=== PATIENT | female | born 1985 | race African-American/Black ===

== ENCOUNTER → 2017-03-13 | Outpatient (CLI) | payer OTHER | END | disposition home or self-care (01) | LOC: LABWHC1 08:42 | PROVIDERS: ATTEND Internal Medicine Endocrinology, Diabetes & Metabolism | DX: E03.8 Other specified hypothyroidism (principal) | CPT/HCPCS: 36415; 84443 ==

== ENCOUNTER → 2017-04-13 | Outpatient (CLI) | payer OTHER | END | disposition home or self-care (01) | LOC: LABWHC1 15:13 | PROVIDERS: ATTEND Obstetrics & Gynecology Reproductive Endocrinology | DX: O02.0 Blighted ovum and nonhydatidiform mole (principal) | CPT/HCPCS: 36415; 84702 ==

== ENCOUNTER → 2017-05-11 | Outpatient (CLI) | payer OTHER | LOC: LABWHC1 10:44 | PROVIDERS: ATTEND Obstetrics & Gynecology Reproductive Endocrinology | DX: O02.0 Blighted ovum and nonhydatidiform mole (principal); Z3A.00 Weeks of gestation of pregnancy not specified | CPT/HCPCS: 36415; 84702 ==

== ENCOUNTER → 2017-05-18 | Outpatient (CLI) | payer OTHER | END | disposition home or self-care (01) | LOC: LABWHC1 06:51 | PROVIDERS: ATTEND Obstetrics & Gynecology Reproductive Endocrinology | DX: O02.0 Blighted ovum and nonhydatidiform mole (principal) | CPT/HCPCS: 36415; 84702 ==

== ENCOUNTER → 2017-11-07 | Outpatient (CLI) | payer OTHER | END | disposition home or self-care (01) | LOC: LABWHC1 14:36 | PROVIDERS: ATTEND Internal Medicine Endocrinology, Diabetes & Metabolism | DX: E03.8 Other specified hypothyroidism (principal) | CPT/HCPCS: 36415; 84443 ==

== ENCOUNTER → 2017-11-13 | Outpatient (CLI) | payer OTHER ==
[2017-11-13 16:48] LABS: ALT 27 U/L (9-52); AST 21 U/L (14-36); Blood Urea Nitrogen 9 mg/dL (7-17); Glucose 89 mg/dL (74-99)
[2017-11-13 17:07] LABS: HCG,Quantitative Serum <2.4 mIU/mL; T4, Free (Free Thyroxine) 1.46 ng/dL (0.78-2.19)
[2017-11-14 01:24] LABS: Vitamin D 25 Hydroxy 11.8 ng/mL (30.0-100.0)
[2017-11-14 01:26] LABS: Cardiolipin Ab IgG Interp NEGATIVE (NEGATIVE); Cardiolipin Ab IgM Interp NEGATIVE (NEGATIVE); Cardiolipin IgA Antibody 1.3 U/mL
[2017-11-14 02:23] LABS: Thyroid Peroxidase Antibodies 1049.8 U/mL (0.0-60.0)
[2017-11-14 02:37] LABS: Hemoglobin A1C 5.2 % (4.0-6.0)
[2017-11-14 10:47] LABS: APTT 36 Sec(s) (<43); Dilute Russell Viper Venom 38 Sec(s) (<44)
[2017-11-14 10:48] LABS: Anti-Thrombin III Antigen 110 % (80 - 120); Protein S Antigen 106 % (50 - 140)
[2017-11-14 12:37] LABS: Anti-Thrombin III Activity 118 % (79-109)
[2017-11-15 13:09] LABS: Anti-Mullerian Hormone 7.97 ng/mL (<9.24)
== END | disposition home or self-care (01) ==
LOC: LABWHC1 15:30
PROVIDERS: ATTEND Obstetrics & Gynecology Reproductive Endocrinology
DX: N92.6 Irregular menstruation, unspecified (principal); N96 Recurrent pregnancy loss
CPT/HCPCS: 36415; 81240; 81241; 82306; 82565; 82626; 82670; 82947; 83001; 83036; 83090; 83498; 83520; 83525; 84146; 84402; 84403; 84439; 84443; 84450; 84460; 84481; 84520; 84702; 85300; 85301; 85305; 85306; 85307; 85613; 85730; 86146; 86147; 86376; 86762; 86787; 86800; 86850; 86900; 86901; 88230; 88262

== ENCOUNTER → 2017-12-27 | Outpatient (CLI) | payer OTHER | END | disposition home or self-care (01) | LOC: LABWHC1 07:26 | PROVIDERS: ATTEND Obstetrics & Gynecology Reproductive Endocrinology | DX: N97.9 Female infertility, unspecified (principal) | CPT/HCPCS: 36415; 84144; 84443 ==

== ENCOUNTER → 2018-01-03 | Outpatient (CLI) | payer OTHER | END | disposition home or self-care (01) | LOC: LABWHC1 06:52 | PROVIDERS: ATTEND Obstetrics & Gynecology Reproductive Endocrinology | DX: Z32.00 Encounter for pregnancy test, result unknown (principal) | CPT/HCPCS: 36415; 84702 ==

== ENCOUNTER → 2018-01-25 | Outpatient (CLI) | payer OTHER ==
[2018-01-25 16:46] LABS: Progesterone 8.6 ng/mL
[2018-01-25 16:50] LABS: Vitamin D 25 Hydroxy 46.7 ng/mL (30.0-100.0)
== END | disposition home or self-care (01) ==
LOC: LABWHC1 10:34
PROVIDERS: ATTEND Internal Medicine Endocrinology, Diabetes & Metabolism
DX: N97.9 Female infertility, unspecified (principal); E03.8 Other specified hypothyroidism
CPT/HCPCS: 36415; 82306; 84144; 84443

== ENCOUNTER → 2018-02-01 | Outpatient (CLI) | payer OTHER | END | disposition home or self-care (01) | LOC: LABWHC1 07:41 | PROVIDERS: ATTEND Obstetrics & Gynecology Reproductive Endocrinology | DX: Z32.00 Encounter for pregnancy test, result unknown (principal) | CPT/HCPCS: 36415; 84702 ==

== ENCOUNTER → 2018-05-07 | Outpatient (CLI) | payer OTHER | END | disposition home or self-care (01) | LOC: LABWHC1 09:57 | PROVIDERS: ATTEND Obstetrics & Gynecology Reproductive Endocrinology | DX: N97.9 Female infertility, unspecified (principal) | CPT/HCPCS: 36415; 84144 ==

== ENCOUNTER → 2018-06-01 | Outpatient (CLI) | payer OTHER | END | disposition home or self-care (01) | LOC: LABWHC1 07:19 | PROVIDERS: ATTEND Obstetrics & Gynecology Reproductive Endocrinology | DX: N97.9 Female infertility, unspecified (principal) | CPT/HCPCS: 36415; 84144 ==

== ENCOUNTER → 2018-06-09 | Outpatient (CLI) | payer OTHER | END | disposition home or self-care (01) | LOC: LABWHC1 08:40 | PROVIDERS: ATTEND Obstetrics & Gynecology Reproductive Endocrinology | DX: Z32.00 Encounter for pregnancy test, result unknown (principal) | CPT/HCPCS: 36415; 84702 ==

== ENCOUNTER → 2018-06-29 | Outpatient (CLI) | payer OTHER | END | disposition home or self-care (01) | LOC: LABWHC1 14:06 | PROVIDERS: ATTEND Obstetrics & Gynecology Reproductive Endocrinology | DX: N97.9 Female infertility, unspecified (principal) | CPT/HCPCS: 36415; 84144 ==

== ENCOUNTER → 2018-07-06 | Outpatient (CLI) | payer OTHER | END | disposition home or self-care (01) | LOC: LABWHC1 14:08 | PROVIDERS: ATTEND Obstetrics & Gynecology Reproductive Endocrinology | DX: Z32.00 Encounter for pregnancy test, result unknown (principal) | CPT/HCPCS: 36415; 84702 ==

== ENCOUNTER → 2018-07-09 | Outpatient (CLI) | payer OTHER ==
[2018-07-09 15:00] LABS: HCG,Quantitative Serum <2.4 mIU/mL
== END ==
LOC: LABWHC1 14:05
PROVIDERS: ATTEND Obstetrics & Gynecology Reproductive Endocrinology
DX: Z34.80 Encounter for supervision of other normal pregnancy, unspecified trimester (principal)
CPT/HCPCS: 36415; 84443; 84702

== ENCOUNTER → 2018-08-01 | Outpatient (CLI) | payer OTHER ==
[2018-08-02 03:44] LABS: Progesterone 26.2 ng/mL
[2018-08-02 03:46] LABS: Vitamin D 25 Hydroxy 30.8 ng/mL (30.0-100.0)
== END ==
LOC: LABWHC1 15:55
PROVIDERS: ATTEND Internal Medicine Endocrinology, Diabetes & Metabolism
DX: N97.9 Female infertility, unspecified (principal); E03.8 Other specified hypothyroidism
CPT/HCPCS: 36415; 82306; 84144; 84443

== ENCOUNTER → 2018-08-06 | Outpatient (CLI) | payer OTHER | LOC: LABWHC1 14:44 | PROVIDERS: ATTEND Obstetrics & Gynecology Reproductive Endocrinology | DX: Z32.00 Encounter for pregnancy test, result unknown (principal); Z3A.00 Weeks of gestation of pregnancy not specified | CPT/HCPCS: 36415; 84702 ==

== ENCOUNTER → 2018-09-06 | Outpatient (CLI) | payer OTHER | END | disposition home or self-care (01) | LOC: LABWHC1 14:27 | PROVIDERS: ATTEND Obstetrics & Gynecology Reproductive Endocrinology | DX: Z32.00 Encounter for pregnancy test, result unknown (principal); N97.9 Female infertility, unspecified | CPT/HCPCS: 36415; 84144; 84702 ==

== ENCOUNTER → 2018-09-08 | Outpatient (CLI) | payer OTHER | END | disposition home or self-care (01) | LOC: LABWHC1 10:31 | PROVIDERS: ATTEND Obstetrics & Gynecology Reproductive Endocrinology | DX: Z34.80 Encounter for supervision of other normal pregnancy, unspecified trimester (principal) | CPT/HCPCS: 36415; 84443; 84702; 86376 ==

== ENCOUNTER → 2018-12-10 | Outpatient (CLI) | payer OTHER | END | disposition home or self-care (01) | LOC: LABWHC1 15:32 | PROVIDERS: ATTEND Internal Medicine Endocrinology, Diabetes & Metabolism | DX: E61.1 Iron deficiency (principal); E03.8 Other specified hypothyroidism | CPT/HCPCS: 36415; 83540; 84443 ==

== ENCOUNTER → 2019-01-02 | Outpatient (CLI) | payer OTHER | LOC: LABWHC1 09:17 | PROVIDERS: ATTEND Internal Medicine Endocrinology, Diabetes & Metabolism | DX: E03.8 Other specified hypothyroidism (principal) | CPT/HCPCS: 36415; 84443 ==

== ENCOUNTER → 2019-02-26 | Outpatient (CLI) | payer OTHER | LOC: LABWHC1 11:28 | PROVIDERS: ATTEND Internal Medicine Endocrinology, Diabetes & Metabolism | DX: E03.8 Other specified hypothyroidism (principal) | CPT/HCPCS: 36415; 84443 ==

== ENCOUNTER → 2019-04-26 | Outpatient (CLI) | payer OTHER | END | disposition home or self-care (01) | LOC: LABWHC1 16:18 | PROVIDERS: ATTEND Internal Medicine Endocrinology, Diabetes & Metabolism | DX: E03.8 Other specified hypothyroidism (principal) | CPT/HCPCS: 36415; 84443 ==

== ENCOUNTER 2019-05-18 09:56 | Inpatient (IN) | payer OTHER ==
[2019-05-24 15:47] VITALS: BMI 41.0
[2019-05-27] MEDS ORDERED: CITRIC ACID-SODIUM CITRATE 15 ML CUP PO ONE (08:00)
[2019-05-27] MEDS ORDERED: LACTATED RINGERS 1,000 ML IV SCH ×2 (08:00→10:30)
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
[2019-05-27] MEDS: LACTATED RINGERS 1,000 ML IV ONE ×2 (08:20→09:33)
[2019-05-27] MEDS ORDERED: NALBUPHINE 10 MG/ML (1 ML AMP) ONE (09:37)
[2019-05-27] MEDS ORDERED: OXYTOCIN 10 UNIT/ML 1 ML VIAL ONE (09:37)
[2019-05-27] MEDS ORDERED: LACTATED RINGERS 1,000 ML BAG IV ONE (09:37)
[2019-05-27] MEDS ORDERED: ePHEDrine SULFATE/0.9% NACL/PF 50 MG/5 ML SYRINGE IV ONE (09:37)
[2019-05-27] MEDS ORDERED: KETOROLAC 30 MG/ML 1 ML VIAL ONE (09:37)
[2019-05-27] MEDS ORDERED: MORPHINE SULFATE (PF) 0.3 MG/0.3 ML SYR ONE (09:37)
[2019-05-27 10:09] LABS: Basophils % (A) 0 %; Eosinophils # (A) 0.1 k/uL (0-0.7); Eosinophils % (A) 1 %; HCT 38.3 % (34.0-46.0); HGB 12.9 gm/dL (11.4-16.0); Lymphocytes # (A) 1.1 k/uL (1.0-4.8); Lymphocytes % (A) 14 %; MCH 30.5 pg (25.0-35.0); MCHC 33.6 g/dL (31.0-37.0); MCV 90.8 fL (80.0-100.0); Mean Platelet Volume 7.5; Monocytes # (A) 0.6 k/uL (0-1.0); Monocytes % (A) 7 %; Neutrophils # (A) 6.3 k/uL (1.3-7.7); Neutrophils % (A) 76 %; Platelet Count 293 k/uL (150-450); RBC 4.22 m/uL (3.80-5.40); RDW 14.5 % (11.5-15.5); WBC 8.3 k/uL (3.8-10.6)
[2019-05-27] MEDS ORDERED: ONDANSETRON 4 MG/2 ML VIAL IVP PRN (10:27)
[2019-05-27] MEDS ORDERED: diphenhydrAMINE 25 MG CAP PO PRN (10:27)
[2019-05-27] MEDS ORDERED: METOCLOPRAMIDE 5 MG/ML 2 ML VIAL IVP PRN (10:27)
[2019-05-27] MEDS ORDERED: diphenhydrAMINE 50 MG CAP PO PRN (10:27)
[2019-05-27] MEDS ORDERED: HYDROcodone/APAP 5-325MG 1 EACH TAB PO PRN (10:27)
[2019-05-27] MEDS ORDERED: ACETAMINOPHEN TAB 325 MG TAB PO PRN (10:27)
[2019-05-27] MEDS ORDERED: SIMETHICONE 80 MG CHEWABLE PO PRN (10:27)
[2019-05-27] MEDS ORDERED: diphenhydrAMINE 50 MG/ML 1 ML VIAL IVP PRN ×2 (10:27)
[2019-05-27] MEDS ORDERED: ZOLPIDEM 5 MG TAB PO PRN (10:27)
[2019-05-27] MEDS ORDERED: NALOXONE 0.4 MG/ML 1 ML VIAL IV PRN (10:27)
--- NOTE | 2019-05-27 10:27 | P.OP ---
Date of Procedure: 05/27/19 Preoperative Diagnosis: Postdates at 42 weeks' gestation Advanced maternal age History of pelvic fracture Unfavorable cervix Postoperative Diagnosis: Postdates at 42 weeks' gestation Advanced maternal age History of pelvic fracture Unfavorable cervix Nuchal cord 3 Procedure(s) Performed: Primary low transverse section Anesthesia: spinal Surgeon: Marge Espinoza [employer] Operator #1: Rosa Jalloh Estimated Blood Loss (ml): 600 IV fluids (ml): 600 Urine output (ml): 300 Pathology: none sent Condition: stable Disposition: floor Indications for Procedure: 33-year-old 7 para 0060 woman at 42 weeks' gestation with no cervical change and no descent of the vertex into the pelvis with history of pelvic fracture. Operative Findings: Female in the vertex occiput anterior position with nuchal cord 3. Weight 8 lbs. 11 oz., 3930 g. Apgars of 9 at 1 minute and 9 at 5 minutes. Otherwise normal-appearing pelvic anatomy, bilateral fallopian tubes and ovaries. Description of Procedure: After the patient and her were met in the preoperative holding area and all questions were answered, she was taken the operating room where spinal anesthetic was administered without incident. She was in positioned, prepped and draped in the dorsal supine position with a leftward tilt. After anesthetic was confirmed adequate a low transverse skin incision was made and carried down to the underlying fascia sharply and with the electrocautery. Fascia was incised in the midline and extended bilaterally with Colmenares scissors. Inferior and superior aspect of the fascial incision were elevated and the underlying rectus muscles dissected off sharply. The Restasis muscles were then in the midline and the peritoneum was tented up and entered sharply. Peritoneal incision was extended inferiorly and superiorly with good visualization of the bladder. The bladder blade was placed and a low transverse uterine incision was made. Copious clear amniotic fluid was encountered. The uterine incision was extended bilaterally bluntly. The 's head was delivered out of the pelvis and a nuchal cord 3 was reduced. The nose and mouth were bulb suctioned. The anterior followed by the posterior shoulders were then delivered and the rest the infant was delivered onto the field. Nose and mouth were further bulb suctioned and the cord was clamped and cut. Apgars were 9 at 1 minute and 9 at 5 minutes. An intact, calcified three-vessel cord placenta was manually removed. The uterus was exteriorized and cleared of all clot and debris. The uterine incision was delineated with Spencer clamps and closed in a running locked fashion with 0 Vicryl suture followed by second imbricating layer of the same suture. The uterus was replaced in the abdomen and the gutters were cleared of all clot and debris. The incision was reinspected and noted to be hemostatic. The peritoneal edges, rectus muscles and fascial edges were inspected and Bovie electrocautery was utilized were necessary for hemostasis. The fascia was then closed in a running fashion with 0 Vicryl suture in halves. The subcuticular tissue was copiously irrigated and reapproximated with 3-0 chromic. The skin was then closed in subcutaneous fashion with 4-0 Vicryl suture. All counts reported to me as correct by the operating room staff and the patient did receive antibiotics preoperatively and Pitocin following delivery of the placenta. She was transported to recovery area in good condition.
[2019-05-27] MEDS ORDERED: OXYTOCIN 20 UNITS/1000 ML NS 1,000 ML IV SCH (10:30)
[2019-05-27] MEDS: LEVOTHYROXINE 75 MCG TAB PO SCH (12:08)
[2019-05-27] MEDS: SENNOSIDES-DOCUSATE SODIUM 1 EACH TAB PO SCH (20:14)
[2019-05-27] MEDS: KETOROLAC 30 MG/ML 1 ML VIAL IVP PRN (23:44)
--- NOTE | 2019-05-28 06:57 | P.PN ---
Progress Note - Text 05/28 655am 33-year-old female status post with spinal anesthetic with Duramorph for postop pain control. Patient has a VAS of 1 with no complains of nausea vomiting or pruritus this morning. Doing very well. Patient to continue with oral medications for postop pain control if necessary
[2019-05-28 07:04] LABS: Basophils % (A) 0 %; Eosinophils # (A) 0.2 k/uL (0-0.7); Eosinophils % (A) 1 %; HCT 35.7 % (34.0-46.0); HGB 11.9 gm/dL (11.4-16.0); Lymphocytes # (A) 1.3 k/uL (1.0-4.8); Lymphocytes % (A) 9 %; MCH 30.8 pg (25.0-35.0); MCHC 33.2 g/dL (31.0-37.0); MCV 92.8 fL (80.0-100.0); Monocytes # (A) 0.9 k/uL (0-1.0); Monocytes % (A) 6 %; Neutrophils # (A) 11.8 k/uL (1.3-7.7); Neutrophils % (A) 82 %; Platelet Count 273 k/uL (150-450); RBC 3.85 m/uL (3.80-5.40); RDW 13.2 % (11.5-15.5); WBC 14.5 k/uL (3.8-10.6)
[2019-05-28] MEDS: LEVOTHYROXINE 75 MCG TAB PO SCH (07:58)
[2019-05-28] MEDS: KETOROLAC 30 MG/ML 1 ML VIAL IVP PRN (07:58)
[2019-05-28] MEDS: SENNOSIDES-DOCUSATE SODIUM 1 EACH TAB PO SCH ×2 (07:58→21:00)
--- NOTE | 2019-05-28 08:24 | P.PNOBGPC ---
Subjective - Subjective Principal diagnosis: Postop day 1 Interval history: Feeling very well. Minimal lochia. Breast-feeding successfully. Patient reports: Reports appetite normal, Reports voiding normally, Reports pain well controlled, Reports ambulating normally, Denies dizzy ambulation [place]: doing well, nursing well Objective - Vital Signs Latest vital signs: Vital Signs Temp Pulse Resp BP Pulse Ox 05/28/19 04:00 98 F 69 16 124/83 97 05/28/19 00:00 97.9 F 77 16 144/90 97 05/27/19 20:00 97.9 F 83 16 132/81 98 05/27/19 16:00 98.0 F 65 18 127/83 97 05/27/19 12:30 64 18 123/75 99 05/27/19 12:00 56 L 18 142/81 05/27/19 11:38 98.4 F 58 L 18 135/68 100 05/27/19 11:30 58 L 18 135/68 100 05/27/19 11:18 54 L 18 141/65 100 05/27/19 11:00 60 18 152/83 100 05/27/19 10:45 58 L 18 146/73 99 05/27/19 10:30 96.5 F L 65 18 120/75 Intake and Output 05/27/19 05/28/19 05/28/19 22:59 06:59 14:59 Intake Total 3200 Output Total 1200 750 Balance 2000 -750 Intake: Intake, IV Titration 3100 Amount Lactated Ringers 1,000 ml 1000 @ 125 mls/hr IV .Q8H NINA Rx#:[id number] Lactated Ringers 1,000 ml 1000 @ 4000 mls/hr IV .Q15M ONE Rx#:[id number] Oxytocin 20 Units/1000 ml 1000 Ns 1,000 ml @ Per Protocol IV .Q0M NINA Rx#: [id number] ceFAZolin 2 gm In Sodium 100 Chloride 0.9% 50 ml @ 100 mls/hr IVPB ONCE ONE Rx# :[id number] Oral 100 Output: Urine 1200 750 Other: # Voids 1 - Exam Extremities: Present: normal, edema Abdomen: Present: normal appearance, soft. Absent: distention, tenderness Incision: Present: normal, dry, intact. Absent: erythematous Uterus: Present: normal, firm - Labs Labs: Abnormal Lab Results - Last 24 Hours (Table) 05/28/19 Range/Units 06:29 WBC 14.5 H (3.8-10.6) k/uL Neutrophils # 11.8 H (1.3-7.7) k/uL Assessment and Plan (1) Post-dates Current Visit: Yes Status: Acute Code(s): O48.0 - POST-TERM SNOMED Code(s): 65791544 (2) Advanced maternal age (AMA) in Current Visit: Yes Status: Acute Code(s): GFG5841 - SNOMED Code(s): 452679206 (3) Anemia Current Visit: Yes Status: Acute Code(s): D64.9 - ANEMIA, UNSPECIFIED SNOMED Code(s): 967430629 (4) Hypothyroid in , antepartum Current Visit: Yes Status: Acute Code(s): O99.280 - ENDO, NUTRITIONAL AND METAB DISEASES COMP PREG, UNSP TRI; E03.9 - HYPOTHYROIDISM, UNSPECIFIED SNOMED Code(s): 461754733 (5) History of fracture of pelvis Current Visit: Yes Status: Acute Code(s): Z87.81 - PERSONAL HISTORY OF (HEALED) TRAUMATIC FRACTURE SNOMED Code(s): 893739168 (6) Nuchal cord Current Visit: Yes Status: Acute Code(s): O69.82X0 - LABOR AND DEL COMP BY OTH CORD ENTANGLE, W/O COMPRSN, UNSP SNOMED Code(s): 493807837 (7) S/P section Current Visit: Yes Status: Acute Code(s): Z98.891 - HISTORY OF UTERINE SCAR FROM PREVIOUS SURGERY SNOMED Code(s): 352173093 Plan: Postop day 1 status post primary low transverse section. She is recovering well. Routine care.
[2019-05-28] MEDS: IBUPROFEN 600 MG TAB PO PRN ×2 (16:36→23:34)
[2019-05-28 20:11] VITALS: RESP 16
[2019-05-29] MEDS: LEVOTHYROXINE 75 MCG TAB PO SCH (06:35)
[2019-05-29] MEDS: IBUPROFEN 600 MG TAB PO PRN (08:01)
[2019-05-29] MEDS: SENNOSIDES-DOCUSATE SODIUM 1 EACH TAB PO SCH (08:02)
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
[2019-05-29 08:50] VITALS: BP 121/81; PULSE 77; TEMP 98.2
== END 2019-05-29 10:00 | disposition home or self-care (01) | DRG 787 ==
LOC: 4FBP 05-27 08:02
PROVIDERS: ADMIT Obstetrics & Gynecology; ATTEND Obstetrics & Gynecology
PROC: 10D00Z1 Extraction of Products of Conception, Low, Open Approach (ICD-10-PCS; principal; 2019-05-27 10:00)
DX: O48.0 Post-term pregnancy (principal); E72.12 Methylenetetrahydrofolate reductase deficiency; O71.6 Obstetric damage to pelvic joints and ligaments; O69.81X0 Labor and delivery complicated by cord around neck, without compression, not applicable or unspecified; Z37.0 Single live birth; Z3A.42 42 weeks gestation of pregnancy; O99.02 Anemia complicating childbirth; D64.9 Anemia, unspecified; O99.844 Bariatric surgery status complicating childbirth; O99.284 Endocrine, nutritional and metabolic diseases complicating childbirth; E06.3 Autoimmune thyroiditis; Z79.890 Hormone replacement therapy; Z79.899 Other long term (current) drug therapy; Z98.890 Other specified postprocedural states; Z87.81 Personal history of (healed) traumatic fracture; Z83.49 Family history of other endocrine, nutritional and metabolic diseases; Z83.2 Family history of diseases of the blood and blood-forming organs and certain disorders involving the immune mechanism
CPT/HCPCS: 85025; 86850; 86900; 86901

== ENCOUNTER → 2019-12-16 | Outpatient (CLI) | payer OTHER | END | disposition home or self-care (01) | DX: N92.6 Irregular menstruation, unspecified (principal) | CPT/HCPCS: 36415; 84144; 84702 ==

== ENCOUNTER → 2019-12-20 | Outpatient (CLI) | payer OTHER ==
--- NOTE | 2019-12-20 09:06 | US ---
EXAMINATION TYPE: US transvaginal DATE OF EXAM: 12/20/2019 COMPARISON: NONE CLINICAL HISTORY: N92.6 Irregular menstruation, unspecified. TECHNIQUE: Transvaginal (TV). Date of LMP: 12/19/2019 EXAM MEASUREMENTS: Uterus: 8.6 x 4.7 x 6.6 cm Endometrial Stripe: 1.0 cm Right Ovary: 3.1 x 2.7 x 2.1 cm Left Ovary: 2.9 x 2.4 x 1.7 cm 1. Uterus: Retroverted wnl 2. Endometrium: wnl 3. Right Ovary: wnl. Physiologic follicular change. 4. Left Ovary: wnl. Physiologic follicular change. Spectral, color and waveform doppler imaging shows good arterial and venous flow within the ovaries ; there is no evidence for ovarian torsion. 5. Bilateral Adnexa: wnl 6. Posterior cul-de-sac: no free fluid IMPRESSION: Unremarkable pelvic ultrasound. Physiologic follicular change of the ovaries.
[2019-12-20 10:44] LABS: Glucose 85 mg/dL (74-99)
[2019-12-20 11:02] LABS: HCG,Quantitative Serum <2.4 mIU/mL; T4, Free (Free Thyroxine) 1.32 ng/dL (0.78-2.19)
[2019-12-20 11:20] LABS: Estradiol 47.5 pg/mL; Follicle Stimulating Hormone 5.3 mIU/mL; Prolactin 6.4 ng/mL (2.8-29.2)
[2019-12-20 11:21] LABS: Insulin Level 8.7 mIU/mL (3.0-25.0)
[2019-12-20 12:34] LABS: Thyroid Peroxidase Antibodies 943.4 U/mL (0.0-60.0)
== END | disposition home or self-care (01) ==
LOC: RADUSWWP 06:43
PROVIDERS: ATTEND Obstetrics & Gynecology Reproductive Endocrinology
DX: N92.6 Irregular menstruation, unspecified (principal)
CPT/HCPCS: 36415; 76830; 82306; 82397; 82670; 82947; 83001; 83525; 84146; 84402; 84403; 84439; 84443; 84481; 84702; 86376; 86800

== ENCOUNTER → 2020-04-01 | Outpatient (CLI) | payer OTHER | END | disposition home or self-care (01) | LOC: LABWHC1 13:01 | PROVIDERS: ATTEND Obstetrics & Gynecology Reproductive Endocrinology | DX: N97.9 Female infertility, unspecified (principal) | CPT/HCPCS: 36415; 84144 ==

== ENCOUNTER → 2020-04-08 | Outpatient (CLI) | payer OTHER | END | disposition home or self-care (01) | LOC: LABWHC1 09:46 | PROVIDERS: ATTEND Obstetrics & Gynecology Reproductive Endocrinology | DX: Z32.00 Encounter for pregnancy test, result unknown (principal) | CPT/HCPCS: 36415; 84702 ==

== ENCOUNTER → 2020-06-03 | Outpatient (CLI) | payer OTHER | END | disposition home or self-care (01) | LOC: LABWHC1 08:39 | PROVIDERS: ATTEND Obstetrics & Gynecology Reproductive Endocrinology | DX: Z32.00 Encounter for pregnancy test, result unknown (principal) | CPT/HCPCS: 36415; 84702 ==

== ENCOUNTER → 2020-06-05 | Outpatient (CLI) | payer OTHER ==
[2020-06-05 09:47] LABS: HCG,Quantitative Serum 90.6 mIU/mL
== END | disposition home or self-care (01) ==
LOC: LABWHC1 08:26
PROVIDERS: ATTEND Obstetrics & Gynecology Reproductive Endocrinology
DX: Z34.80 Encounter for supervision of other normal pregnancy, unspecified trimester (principal); Z3A.00 Weeks of gestation of pregnancy not specified
CPT/HCPCS: 36415; 84443; 84702

== ENCOUNTER → 2020-06-09 | Outpatient (CLI) | payer OTHER | END | disposition home or self-care (01) | LOC: LABWHC1 07:29 | PROVIDERS: ATTEND Obstetrics & Gynecology Reproductive Endocrinology | DX: Z34.80 Encounter for supervision of other normal pregnancy, unspecified trimester (principal); Z3A.00 Weeks of gestation of pregnancy not specified | CPT/HCPCS: 36415; 84702 ==

== ENCOUNTER → 2020-07-29 | Outpatient (CLI) | payer OTHER | END | disposition home or self-care (01) | LOC: LABWHC1 07:08 | PROVIDERS: ATTEND Obstetrics & Gynecology Reproductive Endocrinology | DX: Z34.80 Encounter for supervision of other normal pregnancy, unspecified trimester (principal) | CPT/HCPCS: 36415; 84702 ==

== ENCOUNTER → 2020-08-03 | Outpatient (CLI) | payer OTHER ==
[2020-08-03 13:52] LABS: HCG,Quantitative Serum 4042.8 mIU/mL
== END | disposition home or self-care (01) ==
LOC: LABWHC1 11:28
PROVIDERS: ATTEND Obstetrics & Gynecology Reproductive Endocrinology
DX: Z34.80 Encounter for supervision of other normal pregnancy, unspecified trimester (principal)
CPT/HCPCS: 36415; 84443; 84702

== ENCOUNTER → 2020-09-15 | Outpatient (CLI) | payer OTHER | END | disposition home or self-care (01) | LOC: LABWHC1 08:43 | PROVIDERS: ATTEND Obstetrics & Gynecology | DX: Z20.828 Contact with and (suspected) exposure to other viral communicable diseases (principal) | CPT/HCPCS: U0003; C9803 ==

== ENCOUNTER 2021-03-26 | Inpatient (IN) | payer OTHER | END 2021-03-28 13:30 | disposition home or self-care (01) | DRG 788 | PROVIDERS: ADMIT Obstetrics & Gynecology | PROC: 10D00Z1 Extraction of Products of Conception, Low, Open Approach (ICD-10-PCS; principal; 2021-03-26) | DX: O34.211 Maternal care for low transverse scar from previous cesarean delivery (principal); E06.3 Autoimmune thyroiditis; O32.2XX0 Maternal care for transverse and oblique lie, not applicable or unspecified; O99.284 Endocrine, nutritional and metabolic diseases complicating childbirth; O99.844 Bariatric surgery status complicating childbirth; Z37.0 Single live birth; Z3A.39 39 weeks gestation of pregnancy; Z79.890 Hormone replacement therapy; Z80.0 Family history of malignant neoplasm of digestive organs; Z82.49 Family history of ischemic heart disease and other diseases of the circulatory system | CPT/HCPCS: 85025; 86850; 86900; 86901 ==

== ENCOUNTER 2021-04-14 15:32 | Inpatient (IN) | payer OTHER ==
[2021-04-14 16:49] LABS: Creatinine,Urine Random 23.8 mg/dL; Protein/Creatinine Ratio,Urine 0.546
[2021-04-14] MEDS: LACTATED RINGERS 1,000 ML IV SCH (16:50)
[2021-04-14 16:55] LABS: Basophils % (A) 1 %; Eosinophils # (A) 0.1 k/uL (0-0.7); Eosinophils % (A) 2 %; HCT 37.9 % (34.0-46.0); HGB 12.2 gm/dL (11.4-16.0); Hypochromasia Slight; Lymphocytes # (A) 1.2 k/uL (1.0-4.8); Lymphocytes % (A) 20 %; MCH 28.7 pg (25.0-35.0); MCHC 32.1 g/dL (31.0-37.0); MCV 89.5 fL (80.0-100.0); Mean Platelet Volume 6.7; Monocytes # (A) 0.5 k/uL (0-1.0); Monocytes % (A) 7 %; Neutrophils # (A) 4.2 k/uL (1.3-7.7); Neutrophils % (A) 68 %; Platelet Count 413 k/uL (150-450); RBC 4.23 m/uL (3.80-5.40); RDW 13.3 % (11.5-15.5); WBC 6.2 k/uL (3.8-10.6)
[2021-04-14 17:02] LABS: ALT 16 U/L (4-34); AST 18 U/L (14-36); African American GFR (CKD) >90 (>60 ml/min/1.73 sqM); Blood Urea Nitrogen 10 mg/dL (7-17); LDH 474 U/L (313-618); Non-African American GFR(CKD) >90 (>60 ml/min/1.73 sqM); Uric Acid 6.2 mg/dL (3.7-7.4)
[2021-04-14] MEDS ORDERED: LABETALOL 5 MG/ML VIAL MDV IVP PRN ×3 (17:04)
[2021-04-14] MEDS ORDERED: hydrALAZINE HCL 20 MG/ML 1 ML VIAL IVP PRN (17:04)
[2021-04-14 19:19] LABS: Appearance,Urine Clear (Clear); Bacteria,Urine Rare /hpf; Bilirubin,Urine Negative (Negative); Blood,Urine Moderate (Negative); Color,Urine Light Yellow; Glucose,Urine (UA) Negative (Negative); Ketones,Urine Negative (Negative); Leukocyte Esterase,Urine Negative (Negative); Nitrite,Urine Negative (Negative); PH, Urine 5.5 (5.0-8.0); Protein,Urine Negative (Negative); RBC,Urine 1 /hpf (0-5); Specific Gravity,Urine 1.007 (1.001-1.035); Squamous Epithelial Cell,Urine <1 /hpf (0-4); Urobilinogen,Urine <2.0 mg/dL (<2.0); WBC,Urine 1 /hpf (0-5)
[2021-04-14] MEDS ORDERED: NIFEdipine XL 30 MG TAB.ER.24 PO STA (19:43)
[2021-04-14] MEDS ORDERED: NALOXONE 0.4 MG/ML 1 ML VIAL IV PRN (22:35)
[2021-04-14] MEDS ORDERED: ONDANSETRON 4 MG/2 ML VIAL IVP PRN (22:40)
[2021-04-14] MEDS ORDERED: DOCUSATE 100 MG CAP PO PRN (22:40)
[2021-04-14] MEDS: LABETALOL 100 MG TAB PO SCH (22:46)
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
[2021-04-15] MEDS ORDERED: NIFEdipine XL 30 MG TAB.ER.24 PO STA (03:25)
[2021-04-15 06:21] LABS: Basophils % (A) 0 %; Eosinophils # (A) 0.1 k/uL (0-0.7); Eosinophils % (A) 2 %; HCT 35.5 % (34.0-46.0); HGB 11.9 gm/dL (11.4-16.0); Lymphocytes # (A) 1.6 k/uL (1.0-4.8); Lymphocytes % (A) 24 %; MCH 29.4 pg (25.0-35.0); MCHC 33.6 g/dL (31.0-37.0); MCV 87.5 fL (80.0-100.0); Mean Platelet Volume 6.8; Monocytes # (A) 0.6 k/uL (0-1.0); Monocytes % (A) 9 %; Neutrophils # (A) 3.9 k/uL (1.3-7.7); Neutrophils % (A) 61 %; Platelet Count 374 k/uL (150-450); RBC 4.06 m/uL (3.80-5.40); WBC 6.4 k/uL (3.8-10.6)
[2021-04-15] MEDS: LABETALOL 100 MG TAB PO SCH ×2 (08:11→20:35)
[2021-04-15] MEDS: ENOXAPARIN 40 MG/0.4 ML SYRINGE SQ SCH (08:12)
[2021-04-15] MEDS: ACETAMINOPHEN TAB 325 MG TAB PO PRN ×2 (08:12→13:33)
[2021-04-15] MEDS: LEVOTHYROXINE 75 MCG TAB PO SCH (08:40)
[2021-04-15] MEDS: LEVOTHYROXINE 100 MCG TAB PO SCH (08:40)
[2021-04-15] MEDS ORDERED: LEVOTHYROXINE SODIUM 25 MCG/ML PO SCH (09:00)
[2021-04-15 10:38] LABS: Albumin 3.9 g/dL (3.80-4.90); Albumin/Globulin Ratio 1.77 (1.60-3.17); Calcium 8.3 mg/dL (8.7-10.3); Globulin 2.2 g/dL (1.6-3.3); Magnesium 1.7 mg/dL (1.5-2.4); Non-African American GFR(CKD) 116.4 (60.0-200.0); Potassium 3.7 mmol/L (3.5-5.5); Total Bilirubin 0.3 mg/dL (0.2-1.2); Total Protein 6.1 g/dL (6.2-8.2)
--- NOTE | 2021-04-15 16:08 | P.PN ---
Subjective Progress Note Date: 04/15/21 Patient was seen and evaluated by me this morning. She appeared anxious and still complaining of nonspecific headache and neck pain. She said her headache started in the right frontal area and radiated around her head to the back of her head. He denies any nausea or vomiting. She said that she is having problems with her vision as well with what she describes as black dots floating on and off Objective - Vital Signs Vital signs: Vital Signs Temp 97.9 F 04/15/21 12:20 Pulse 98 04/15/21 13:51 Resp 16 04/15/21 13:51 BP 130/86 04/15/21 13:51 Pulse Ox 97 04/15/21 13:51 Intake & Output 04/14/21 04/15/21 04/15/21 18:59 06:59 18:59 Weight 101.605 kg 101.605 kg Other: Voiding Method Toilet Toilet - Exam General: The patient is awake and alert, in no distress Eye: there is normal conjunctiva bilaterally. Neck: The neck is supple, there is no JVD. Cardiovascular: Normal S1-S2, no S3-S4, no murmurs. Respiratory: Lungs clear to auscultation bilaterally Gastrointestinal: Abdomen is soft, nontender Musculoskeletal: There is no pedal edema. Neurological:. Speech is normal. Skin: Skin is warm and dry - Labs CBC & Chem 7: 04/15/21 05:59 04/15/21 05:59 Labs: Abnormal Lab Results - Last 24 Hours (Table) 04/14/21 04/15/21 Range/Units 16:20 05:59 Calcium 8.3 L (8.7-10.3) mg/dL Total Protein 6.1 L (6.2-8.2) g/dL Urine Blood Moderate H (Negative) Urine Bacteria Rare H (None) /hpf Assessment and Plan Assessment: This is a 35-year-old female who presented to the emergency room with worsening headache and uncontrolled blood pressure. Patient was evaluated in the ER and admitted to the hospital for further management of her medical problems noted below. 1. hypertension, blood pressure better controlled. Patient was started on Procardia XL 30 mg daily and labetalol 100 mg twice a day. We will continue to monitor closely. 2. Constant headache, probably attributed to uncontrolled blood pressure. Patient is not getting any relief with Tylenol. I will start her on Fioricet and Toradol as needed. Obtain computed tomography scan of the head to further evaluation 3. History of hypothyroidism during Today, I reviewed her medication list and lab work results. Her lab work essentially within normal/acceptable range. Thyroid function test is normal. Echocardiogram ordered by admitting physician pending. Anticipate discharge home tomorrow if improving.
[2021-04-15] MEDS: BUTALB/APAP/CAFF 50-325-40MG TAB PO PRN ×2 (16:17→20:35)
[2021-04-15] MEDS: KETOROLAC 15 MG/ML 1 ML VIAL IVP SCH (17:31)
[2021-04-15] MEDS: LACTATED RINGERS 1,000 ML IV SCH (17:31)
--- NOTE | 2021-04-15 17:36 | CT ---
EXAMINATION TYPE: CT brain wo con DATE OF EXAM: 04/15/2021 COMPARISON: None HISTORY: Headaches post x2 weeks ago. CT DLP: 1195 mGycm Automated exposure control for dose reduction was used. Ventricles and sulci appear normal. There is no mass effect nor midline shift. There is no sign of in tracranial hemorrhage. The calvarium is intact and there is no evidence of cerebral edema. There is normal aeration of the mastoid sinuses. The skull base is intact. IMPRESSION: Normal unenhanced head CT scan.
--- NOTE | 2021-04-15 20:00 | ECHOF ---
Referral Reason:post hypertension MEASUREMENTS -------- HEIGHT: 162.6 cm WEIGHT: 101.6 kg BP: 164/106 IVSd: 1.2 cm (0.6 - 1.1) LVIDd: 4.7 cm (3.9 - 5.3) LVPWd: 1.1 cm (0.6 - 1.1) EDV(Teich): 103 ml IVSs: 2.0 cm LVIDs: 3.0 cm LVPWs: 1.7 cm %IVS Thck: 65 % ESV(Teich): 34 ml EF(Teich): 67 % %FS: 37 % SV(Teich): 70 ml LA Diam: 3.7 cm (2.7 - 3.8) RVIDd: 3.1 cm (< 3.3) LALs A4C: 5.7 cm LAAs A4C: 22.6 cm LAESV A-L A4C: 76 ml LAESV MOD A4C: 73 ml LALs A2C: 5.9 cm LAAs A2C: 20.9 cm LAESV A-L A2C: 63 ml LAESV MOD A2C: 60 ml LAESV(A-L): 71 ml LAESV Index (A-L): 34.47 ml/m Ao Diam: 3.1 cm (2.0 - 3.7) AV Cusp: 2.2 cm (1.5 - 2.6) EPSS: 0.5 cm MV E Alessandro: 0.82 m/s MV DecT: 203 ms MV Dec [place]: 4.0 m/s MV A Alessandro: 0.76 m/s MV E/A Ratio: 1.07 MV PHT: 59 ms AV Vmax: 1.68 m/s AV maxP.30 mmHg TR Vmax: 1.97 m/s TR maxP.59 mmHg RAP: 5.00 mmHg RVSP: 20.59 mmHg MV EF SLOPE: 81.96 mm/s (70 - 150) MV EXCURSION: 17.57 mm (> 18.000) FINDINGS -------- Sinus rhythm. This was a technically good study. The left ventricular size is normal. Left ventricular wall thickness is normal. Overall left vent ricular systolic function is normal with, an EF between 60 - 65 %. The right ventricle is normal in size. LA is moderately dilated 34-39 ml/m2 The right atrium is normal in size. Interatrial and interventricular septum intact. The aortic valve is trileaflet, and appears structurally normal. No aortic stenosis or regurgitation. There is trace to mild mitral regurgitation. Mild tricuspid regurgitation present. Trace/mild (physiologic) pulmonic regurgitation. The aortic root size is normal. Normal inferior vena cava with normal inspiratory collapse consistent with estimated right atrial pre ssure of 5 mmHg. There is no pericardial effusion. CONCLUSIONS -------- 1. The left ventricular size is normal. 2. Left ventricular wall thickness is normal. 3. Overall left ventricular systolic function is normal with, an EF between 60 - 65 %. 4. LA is moderately dilated 34-39 ml/m2 5. The aortic valve is trileaflet, and appears structurally normal. No aortic stenosis or regurgitati on. 6. There is trace to mild mitral regurgitation. 7. Mild tricuspid regurgitation present. 8. Trace/mild (physiologic) pulmonic regurgitation. 9. There is no pericardial effusion. FACTORY EXPERT: Carla Johnson RDCS
[2021-04-16] MEDS: KETOROLAC 15 MG/ML 1 ML VIAL IVP SCH ×4 (00:10→17:16)
[2021-04-16] MEDS ORDERED: hydrALAZINE HCL 20 MG/ML 1 ML VIAL IVP STA (02:21)
[2021-04-16] MEDS: BUTALB/APAP/CAFF 50-325-40MG TAB PO PRN (02:32)
[2021-04-16] MEDS: LEVOTHYROXINE 75 MCG TAB PO SCH (06:06)
[2021-04-16] MEDS: LEVOTHYROXINE 100 MCG TAB PO SCH (06:06)
[2021-04-16] MEDS: LABETALOL 100 MG TAB PO SCH ×3 (09:17→22:04)
[2021-04-16] MEDS: ENOXAPARIN 40 MG/0.4 ML SYRINGE SQ SCH (09:17)
[2021-04-16] MEDS: LACTATED RINGERS 1,000 ML IV SCH (17:17)
--- NOTE | 2021-04-16 17:26 | P.PN ---
Subjective Progress Note Date: 04/16/21 (delayed charting seen at 1203) Principal diagnosis: headache Patient is a 35 yo female who is 2 weeks post from a 39 week devlivered via with a hx of gastrci bypass and hypothyrodism who presented to the hospital due to elevting blood pressures. She was found have an acute increase in blood pressure at 39 weeks gestation and therefore was taken for a . She had some elevating blood pressures as well as headaches. She was admitted for preeclampsia. She was started on labetalol and Procardia. Her headaches continue to be severe and they were thought was added. Patient seen and examined at bedside. She continues to have a dull headache in the right temporal region that radiates to the left. She denies any chest pain or shortness of breath. She denies any pre-existing hypertension. She has an intake appointment with Dr. Vilchis but it is not until the end of June. She was following with Dr. Patiño. She follows with Dr. Reyes for anemia and Dr. Holcomb for endocrinology. General: ill appearing, no distress, appears at stated age Derm: warm, dry Head: atraumatic, normocephalic, symmetric Eyes: EOMI, no lid lag, anicteric sclera Mouth: no lip lesion, mucus membranes moist Cardiovascular: S1S2 reg, no murmur, positive posterior tibial pulse bilateral, Lungs: CTA bilateral, no rhonchi, no rales , no accessory muscle use Abdominal: soft, nontender to palpation, no guarding, no appreciable organomegaly Ext: no gross muscle atrophy, no edema, no contractures Neuro: CN II-XI grossly intact, no focal neuro deficits Psych: Alert, oriented, appropriate affect Post Preeclampsia - SBP still greater than 140 but KENNEDY resolving. Increasd labetalol to TID and maintain procardia - follow blood pressures - will need close outpatient monitoring. Anemia - FE deficeincy - IV iron due this week will give now Hypothyroidism - syntohroid Obesity - s/p gastric bypass. - change to inpatient admission as she has failed outpatient treatment and her BP is not adaquately controlled which could lead to worsening of her symptoms, stroke and seizure Objective - Vital Signs Vital signs: Vital Signs Temp 97.9 F 04/16/21 17:00 Pulse 72 07/16/21 17:00 Resp 16 04/16/21 17:00 BP 130/88 04/16/21 17:00 Pulse Ox 99 04/16/21 17:00 Intake & Output 04/15/21 04/16/21 04/16/21 18:59 06:59 18:59 Intake Total 840 1235 360 Balance 840 1235 360 Intake: Oral 840 1235 360 Other: Voiding Method Toilet Toilet Toilet # Voids 3 2 - Labs CBC & Chem 7: 04/15/21 05:59 04/15/21 05:59
[2021-04-16] MEDS ORDERED: SODIUM FERRIC GLUCONAT-SUCROSE 125 MG in SODIUM CHLORIDE 0.9% 100 ML IVPB ONE (17:30)
[2021-04-17] MEDS: KETOROLAC 15 MG/ML 1 ML VIAL IVP SCH ×2 (00:03→06:17)
[2021-04-17] MEDS: LEVOTHYROXINE 75 MCG TAB PO SCH (06:21)
[2021-04-17] MEDS: LEVOTHYROXINE 100 MCG TAB PO SCH (06:22)
[2021-04-17 08:37] VITALS: BP 133/87; PULSE 80; RESP 16; TEMP 98.4
[2021-04-17] MEDS: ENOXAPARIN 40 MG/0.4 ML SYRINGE SQ SCH (08:37)
[2021-04-17] MEDS: LABETALOL 100 MG TAB PO SCH (08:38)
--- NOTE | 2021-04-17 16:56 | P.DS ---
Providers Date of admission: 04/14/21 19:55 Expected date of discharge: 04/17/21 Attending physician: Corinna Kay MD Primary care physician: Stated None Hospital Course: Discharge Diagnosis: preeclampsia Anemia Hypothyroidism Obesity Status post gastric bypass Hospital Course: Patient is a 35 yo female who is 2 weeks post from a 39 week devlivered via with a hx of gastrci bypass and hypothyrodism who presented to the hospital due to elevting blood pressures. She was found have an acute increase in blood pressure at 39 weeks gestation and therefore was taken for a . She had some elevating blood pressures as well as headaches. She was admitted for preeclampsia. She was started on labetalol and Procardia. Her headaches continue to be severe and Fioricet was added. Her blood pressures continued to be elevated through 04/16 and labetalol was increased. She then had an average blood pressure of less than 140/85. She is determined stable for discharge home. Imaging: Echocardiogram: Ejection fraction 60-65% CT Head: Normal Follow-up: Labetalol 100 3 times a day, Procardia the daily. Follow-up with Dr. Espinoza abuse in 1 week. Unfortunately her initial appointment with Dr. Govea is not until June. She will also follow-up with Dr. Holcomb of endocrinology. She was given strict instructions on when to decrease her blood pressure medications and to take blood pressure twice daily. She is aware that she cannot breast-feed well on Fioricet and she will continue to pump and dump at this time. Patient seen and examined at bedside. Headache and is improved and less frequent. She feels fine going home. No chest pain or shortness of breath. Vital signs reviewed and stable. General: non toxic, no distress, appears at stated age Head: atraumatic, normocephalic, symmetric Eyes: EOMI, no lid lag, anicteric sclera Mouth: no lip lesion, mucus membranes moist Cardiovascular: S1S2 reg, no murmur, positive posterior tibial pulse bilateral, Lungs: CTA bilateral, no rhonchi, no rales , no accessory muscle use Ext: no gross muscle atrophy, no edema, no contractures Neuro: CN II-XI grossly intact, no focal neuro deficits Psych: Alert, oriented, appropriate affect A total of 25 minutes of time were spent preparing this complex discharge summary . Plan - Discharge Summary Discharge Rx Participant: Yes New Discharge Prescriptions: New Butalb/APAP/Caff 50-325-40Mg [Fioricet 50-325-40] 1 each PO Q6HR PRN #12 tab PRN Reason: Headache NIFEdipine XL [Procardia XL] 60 mg PO DAILY #30 tab.er.24 Labetalol [Trandate] 100 mg PO TID #90 tab Continue Pnv No.95/Ferrous Fum/Folic AC [ Multivitamin Tablet] 1 tab PO DAILY Levothyroxine Sodium [Tirosint-Inna] 175 mcg PO DAILY Discharge Medication List Pnv No.95/Ferrous Fum/Folic AC [ Multivitamin Tablet] 1 tab PO DAILY 05/24/19 [History] Levothyroxine Sodium [Tirosint-Inna] 175 mcg PO DAILY 04/14/21 [History] Butalb/APAP/Caff 50-325-40Mg [Fioricet 50-325-40] 1 each PO Q6HR PRN #12 tab 04/17/21 [Rx] Labetalol [Trandate] 100 mg PO TID #90 tab 04/17/21 [Rx] NIFEdipine XL [Procardia XL] 60 mg PO DAILY #30 tab.er.24 04/17/21 [Rx] Follow up Appointment(s)/Referral(s): Marge Espinoza MD [STAFF PHYSICIAN] - 1 Week Fany Govea MD [STAFF PHYSICIAN] - 1 Week Marlene Holcomb MD [STAFF PHYSICIAN] - 1 Week Patient Instructions/Handouts: Labetalol (By mouth), Nifedipine (By mouth), Butalbital/Acetaminophen/Caffeine (By mouth), Preeclampsia and Eclampsia After Delivery (GEN) Activity/Diet/Wound Care/Special Instructions: Activity: as tolerated Diet: heart healthy Goal of blood pressure less than 140/90 If top number is less than 120 and bottom less than 85 consistent you can first decrease to labetalol 100 mg twice daily If top number is less than 90 at any time stop all medications check blood pressure twice daily and as need if light headed, dizzy, feeling faint Discharge Disposition: HOME SELF-CARE
== END 2021-04-17 10:15 | disposition home or self-care (01) | DRG 776 ==
LOC: FBPOP 15:32 → 5NMEDONC 19:55 → INTOOBSV 19:55 → OBSVTOIN 04-16 17:41 → UNDODISOB 04-17 10:15
PROVIDERS: ADMIT Internal Medicine; ATTEND Internal Medicine
DX: O14.95 Unspecified pre-eclampsia, complicating the puerperium (principal); O99.285 Endocrine, nutritional and metabolic diseases complicating the puerperium; E03.9 Hypothyroidism, unspecified; O90.81 Anemia of the puerperium; O99.845 Bariatric surgery status complicating the puerperium; O99.215 Obesity complicating the puerperium; E66.9 Obesity, unspecified; O90.0 Disruption of cesarean delivery wound; Z79.899 Other long term (current) drug therapy; Z79.890 Hormone replacement therapy; Z82.49 Family history of ischemic heart disease and other diseases of the circulatory system
CPT/HCPCS: 70450; 80053; 81001; 82565; 82570; 83615; 83735; 84156; 84443; 84450; 84460; 84520; 84550; 85025; 93306; 94760; 96361; 96374; 96375; 99215

== ENCOUNTER → 2021-09-15 | Outpatient (CLI) | payer OTHER | END | disposition home or self-care (01) | LOC: LABWHC1 09:47 | PROVIDERS: ATTEND Obstetrics & Gynecology | DX: Z34.90 Encounter for supervision of normal pregnancy, unspecified, unspecified trimester (principal); Z3A.00 Weeks of gestation of pregnancy not specified | CPT/HCPCS: 36415; 84702 ==

== ENCOUNTER → 2022-06-10 | Outpatient (CLI) | payer OTHER ==
[~2022-06-10] MED LIST: IRON SUCROSE 300 MG in SODIUM CHLORIDE 0.9% 250 ML IVPB NR; SODIUM CHLORIDE 0.9% 500 ML 500 ML in EMPTY BAG 1 BAG IV PRN
[2022-06-10 12:35] VITALS: BP 165/91; PULSE 69; RESP 16; TEMP 98.4
== END ==
LOC: PROCWHC3 12:14
PROVIDERS: ATTEND Internal Medicine Hematology & Oncology
DX: D50.0 Iron deficiency anemia secondary to blood loss (chronic) (principal)
CPT/HCPCS: 96365; 96366; J1756

== ENCOUNTER 2023-11-28 15:10 | Outpatient (CLI) | payer OTHER ==
[2023-11-28 16:02] LABS: Basophils % (A) 0 %; Eosinophils # (A) 0.1 k/uL (0-0.7); Eosinophils % (A) 1 %; HCT 33.4 % (34.0-46.0); HGB 11.2 gm/dL (11.4-16.0); Lymphocytes # (A) 1.6 k/uL (1.0-4.8); Lymphocytes % (A) 18 %; MCH 30.9 pg (25.0-35.0); MCHC 33.6 g/dL (31.0-37.0); Monocytes # (A) 0.5 k/uL (0-1.0); Monocytes % (A) 6 %; Neutrophils # (A) 6.5 k/uL (1.3-7.7); Neutrophils % (A) 73 %; Platelet Count 279 k/uL (150-450); RBC 3.63 m/uL (3.80-5.40); RDW 13.6 % (11.5-15.5)
[2023-11-28 16:10] LABS: Appearance,Urine Cloudy (Clear); Bilirubin,Urine Negative (Negative); Blood,Urine Negative (Negative); Color,Urine Yellow; Glucose,Urine (UA) Negative (Negative); Ketones,Urine 1+ (Negative); Leukocyte Esterase,Urine Moderate (Negative); Mucus,Urine Occasional /hpf; Nitrite,Urine Negative (Negative); PH, Urine 6.5 (5.0-8.0); Protein,Urine Trace (Negative); RBC,Urine 1 /hpf (0-5); Specific Gravity,Urine 1.024 (1.001-1.035); Squamous Epithelial Cell,Urine 7 /hpf (0-4); WBC,Urine 2 /hpf (0-5)
[2023-11-28 16:17] LABS: ALT 44 U/L (4-34); AST 27 U/L (14-36); African American GFR (CKD) >90 (>60 ml/min/1.73 sqM); Blood Urea Nitrogen 6 mg/dL (7-17); LDH 184 U/L (120-246); Non-African American GFR(CKD) >90 (>60 ml/min/1.73 sqM); Uric Acid 4.9 mg/dL (3.7-7.4)
[2023-11-28 17:07] LABS: Creatinine,Urine Random 122.9 mg/dL; Protein/Creatinine Ratio,Urine 0.041
[2023-11-28 20:27] VITALS: BP 168/94; PULSE 67; RESP 17
== END 2023-11-28 18:15 | disposition left against medical advice (07) ==
LOC: FBPOP 15:10
PROVIDERS: ATTEND Obstetrics & Gynecology
DX: O14.93 Unspecified pre-eclampsia, third trimester (principal); Z3A.38 38 weeks gestation of pregnancy; Z91.011 Allergy to milk products
CPT/HCPCS: 36415; 59025; 81001; 82565; 82570; 83615; 84156; 84450; 84460; 84520; 84550; 85025

== ENCOUNTER → 2023-12-20 | Outpatient (CLI) | payer OTHER ==
--- NOTE | 2023-12-20 10:05 | XR ---
EXAMINATION TYPE: XR chest 2V DATE OF EXAM: 12/20/2023 9:51 AM CLINICAL INDICATION:Female, 38 years old with history of R05.3; H COMPARISON: Chest radiographs from 12/20/2023 TECHNIQUE: XR chest 2V Frontal and lateral views of the chest. FINDINGS: Lungs/Pleura: There is no evidence of pleural effusion, focal consolidation, or pneumothorax. Pulmonary vascularity: Unremarkable. Heart/mediastinum: Cardiomediastinal silhouette is unremarkable. Musculoskeletal: No acute osseous pathology. Other findings: None IMPRESSION: No acute cardiopulmonary disease/process.
[2023-12-20 17:00] LABS: Basophils # (A) 0.04 X 10*3/uL (0.00-0.10); Eosinophils # (A) 0.07 X 10*3/uL (0.04-0.35); Eosinophils % (A) 1.8 %; HCT 42.5 % (37.2-46.3); HGB 13.6 g/dL (12.0-15.0); Lymphocytes # (A) 0.93 X 10*3/uL (0.90-5.00); Lymphocytes % (A) 24.4 %; MCH 29.7 pg (27.0-32.0); MCV 92.8 FL (80.0-97.0); Mean Platelet Volume 9.4 FL (9.5-12.2); Monocytes % (A) 18.4 %; NRBC Per 100 WBC 0 X 10*3/uL (0.00-0.01); Neutrophils # (A) 2.06 X 10*3/uL (1.80-7.70); Neutrophils % (A) 54.1 %; Platelet Count 315 X 10*3/uL (140-440); RBC 4.58 X 10*6/uL (4.10-5.20); RDW 13.3 % (11.5-14.5); WBC 3.81 X 10*3/uL (4.50-10.00)
[2023-12-20 17:31] LABS: ALT 21 U/L (8-44); AST 18 U/L (13-35); Albumin 4.2 g/dL (3.8-4.9); Albumin/Globulin Ratio 1.62 Ratio (1.60-3.17); Alkaline Phosphatase 96 U/L (41-126); BUN/Creat Ratio 19.33 Ratio (12.00-20.00); Blood Urea Nitrogen 11.6 mg/dL (9.0-27.0); Calcium 8.9 mg/dL (8.7-10.3); Carbon Dioxide 24.6 mmol/L (21.6-31.8); Chloride 108 mmol/L (96-109); Chol/HDL Ratio 5.59 Ratio; Globulin 2.6 g/dL (1.6-3.3); Glucose 93 mg/dL (70-110); LDL Cholesterol,Calculated 156.1 mg/dL (0.0-131.0); Potassium 4.2 mmol/L (3.5-5.5); Sodium 143 mmol/L (135-145); Total Bilirubin 0.2 mg/dL (0.3-1.2); Total Protein 6.8 g/dL (6.2-8.2)
== END | disposition home or self-care (01) ==
LOC: RADXRMAIN 09:36
PROVIDERS: ATTEND Internal Medicine
DX: R05.3 Chronic cough (principal); I10 Essential (primary) hypertension; E78.2 Mixed hyperlipidemia; R73.09 Other abnormal glucose
CPT/HCPCS: 36415; 71046; 80053; 80061; 83036; 84443; 85025

== ENCOUNTER → 2024-08-09 | Outpatient (CLI) | payer OTHER ==
--- NOTE | 2024-08-09 08:27 | CT ---
EXAMINATION TYPE: CT sinus wo con DATE OF EXAM: 08/09/2024 6:46 AM COMPARISON: 11/19/2014 CLINICAL INDICATION: Female, 38 years old with history of J32.0 CHRONIC MAXILLARY SINUSITIS, CHRONIC MAXILLARY SINUSITIS TECHNIQUE: The paranasal sinuses are examined in the axial plane at 2 mm thick sections. Reconstruct ed images in the coronal plane were obtained. Contrast used: mL of , (none if empty) Oral contrast used: (none if empty) CT DLP: 575.3 mGycm, Automated exposure control for dose reduction was used. FINDINGS: There is dental amalgam scatter artifact Calcifications to the right maxillary sinus. The ethmoid air cells are clear. The sphenoid sinuses are clear. The frontal sinuses are clear. The septum is evaluated. There is septal deviation to the left. Prior right uncinate ectomy is evident. Left ostiomeatal unit is patent IMPRESSION: 1. Minimal mucosal thickening through the right maxillary sinus. Prior uncinectomies evident on the right. [facility], , 08/09/2024 8:24 AM
== END | disposition home or self-care (01) ==
LOC: RADCTMAIN 06:29
PROVIDERS: ATTEND Otolaryngology
DX: J32.0 Chronic maxillary sinusitis (principal); J34.89 Other specified disorders of nose and nasal sinuses
CPT/HCPCS: 70486

== ENCOUNTER → 2024-08-26 | Outpatient (CLI) | payer OTHER ==
--- NOTE | 2024-08-27 14:55 | US ---
EXAMINATION TYPE: US thyroid st tissue head/neck DATE OF EXAM: 08/26/2024 COMPARISON: NONE CLINICAL INDICATION: Female, 38 years old with history of E04.9 THYROID; TECHNIQUE: Grayscale and color Doppler imaging of the thyroid gland. FINDINGS: GLAND SIZE: Right Lobe: 5.7x1.9x2.3 cm Overall Parenchyma: very heterogeneous Left Lobe: 5.8x2.0x2.3 cm Overall Parenchyma: very heterogeneous Isthmus Thickness: 0.3 cm NODULES RIGHT: # of nodules measured on right: 0 LEFT: # of nodules measured on left: 0 ISTHMUS: # of nodules measured in the isthmus: 0 Slightly limited measurements Bilateral neck scanned, no evidence of lymphadenopathy. IMPRESSION: Thyroid enlargement with heterogeneity. Correlate with thyroid function testing. 2017 ACR TI-RADS LEVEL: *Highest TI-RADS level nodule reported [email or web address] [facility], , 08/27/2024 2:53 PM
--- NOTE | 2024-08-27 18:07 | MM ---
Reason for Exam: Screening (asymptomatic). Baseline mammogram. Patient History: Menarche at age 11. First Full-Term at age 33. Late child-bearing (after 30). Last menstrual period: 08/22/2024 Risk Values: Ponoam 5 year model risk: 0.8%. NCI Lifetime model risk: 13.6%. Prior Study Comparison: Patient's first Mammogram. No prior studies available for comparison. Tissue Density: There are scattered areas of fibroglandular density. Findings: Analyzed By CAD. No significant mass, suspicious microcalcification, or other discrete abnormality is seen. Overall Assessment: Negative, BI-RAD 1 Management: Screening Mammogram of both breasts in 1 year. . Patient should continue monthly self-breast exams. A clinical breast exam by your physician is recommended on an annual basis. This exam should not preclude additional follow-up of suspicious palpable abnormalities. Note on Poonam scores and lifetime risk: 1. A Poonam score greater than 3% is considered moderate risk. If this is the case, consider specialist referral to assess eligibility for a risk reducing agent. 2. If overall lifetime risk for the development of breast cancer is 20% or higher, the patient may qualify for future screening with alternating mammogram and breast MRI. [facility], , 08/27/2024 6:04 PM. Electronically signed and approved by: Drew Fernandes M.D. Radiologist
== END | disposition home or self-care (01) ==
LOC: RADMAMWWP 07:06
PROVIDERS: ATTEND Internal Medicine
DX: Z12.31 Encounter for screening mammogram for malignant neoplasm of breast (principal); E04.9 Nontoxic goiter, unspecified; R92.323 Mammographic fibroglandular density, bilateral breasts
CPT/HCPCS: 76536; 77063; 77067

== ENCOUNTER → 2024-08-27 | Outpatient (CLI) | payer OTHER ==
[2024-08-27 16:58] LABS: Aspergillus fumagatus IgE <0.10 kU/L; Birch IgE <0.10 kU/L; Cat Epith & Dander IgE <0.10 kU/L; Cladosporian herbarum IgE <0.10 kU/L; Cockroach IgE <0.10 kU/L; Dermato. farinae IgE <0.10 kU/L; Dog Dander IgE <0.10 kU/L; Maple (Box Elder) IgE <0.10 kU/L; Oak IgE <0.10 kU/L; Ragweed,Common IgE <0.10 kU/L
[2024-08-28 12:28] LABS: Alt. alternata IgE Class CLASS 0; Alternaria alternata IgE <0.10 kU/L (<0.10); Aureo. pullulans IgE <0.10 kU/L (<0.10); Aureo. pullulans IgE Class CLASS 0; Candida albicans IgE Class CLASS 0; Com. Pigweed IgE <0.10 kU/L (<0.10); Com. Pigweed IgE Class CLASS 0; Cottonwood IgE <0.10 kU/L (<0.10); Epicoccum purpurascens Class CLASS 0; Epicoccum purpurascens IgE <0.10 kU/L (<0.10); Johnson Grass IgE Class CLASS 0; Lamb's Quarter IgE <0.10 kU/L (<0.10); Lamb's Quarter IgE Class CLASS 0; Mucor racemosus IgE <0.10 kU/L (<0.10); Mucor racemosus IgE Class CLASS 0; Rhizopus nigricans IgE <0.10 kU/L (<0.10); Rhizopus nigricans IgE Class CLASS 0; S.rostrata/Helminth Class CLASS 0; S.rostrata/Helminth IgE <0.10 kU/L (<0.10); Sycamore(Mpl.Lf) IgE <0.10 kU/L (<0.10); Sycamore(Mpl.Lf) IgE Class CLASS 0; Timothy Grass IgE <0.10 kU/L (<0.10); Timothy Grass IgE Class CLASS 0; Walnut Tree IgE <0.10 kU/L (<0.10); Walnut Tree IgE Class CLASS 0; White Ash IgE Class CLASS 0
== END | disposition home or self-care (01) ==
LOC: LABWHC1 08:14
PROVIDERS: ATTEND Otolaryngology
DX: J30.89 Other allergic rhinitis (principal)
CPT/HCPCS: 36415; 86003

== ENCOUNTER → 2025-01-22 | Outpatient (CLI) | payer OTHER ==
--- NOTE | 2025-01-23 12:41 | NM ---
EXAMINATION TYPE: NM thyroid image w uptake DATE OF EXAM: 01/23/2025 COMPARISON: Thyroid ultrasound 08/26/2024 CLINICAL INDICATION: Female, 39 years old with history of E06.3 AUTOIMMUNE THYROIDITIS; TECHNIQUE: Thyroid iodine uptake is calculated and images performed after the oral administration of 292.2 uCi 1-123 Capsule. FINDINGS: There is normal distribution of activity throughout the gland. The 4 hour iodine uptake is calculated at 15.2% (normal range 8-14%). The 24-hour iodine uptake is calculated at 32.9% (normal r bird 15-35%). IMPRESSION: Mild increase iodine uptake at 4 hours with normal 24-hour iodine uptake. This may indicate rapid iod ine turnover and can be seen with hyperthyroidism specifically Graves' disease versus other etiologie s. [facility], , 01/23/2025 12:39 PM
== END | disposition home or self-care (01) ==
LOC: RADNMMAIN 09:55
PROVIDERS: ATTEND Internal Medicine
DX: E06.3 Autoimmune thyroiditis (principal)
CPT/HCPCS: 78014; A9516